=== PATIENT | female | born 1980 | race Caucasian/White ===

== ENCOUNTER → 2017-12-14 | Outpatient (CLI) | payer OTHER ==
[2017-12-14 13:35] LABS: ADD MAN DIFF? NO
[2017-12-14 13:40] LABS: BASO # 0.1 x10^3/uL (0.0-0.2); BASO % 1 % (0-3); EOS # 0.1 x10^3/uL (0.0-0.7); EOS % 2 % (0-3); HEMATOCRIT 38.9 % (36.0-47.0); HEMOGLOBIN 13.2 g/dL (12.0-15.5); LYMPH # 1.7 x10^3/uL (1.0-4.8); LYMPH % 36 % (24-48); MEAN CORPUSCULAR HEMOGLOBIN 32 pg (25-35); MEAN CORPUSCULAR HGB CONC 34 g/dL (31-37); MEAN CORPUSCULAR VOLUME 93 fL (79-100); MONO # 0.4 x10^3/uL (0.0-1.1); MONO % 9 % (0-9); NEUT # 2.6 x10^3uL (1.8-7.7); NEUT % 53 % (31-73); PLATELET COUNT 202 x10^3/uL (140-400); RED BLOOD COUNT 4.16 x10^6/uL (3.50-5.40); WHITE BLOOD COUNT 4.9 x10^3/uL (4.0-11.0)
[2017-12-14 13:55] LABS: ALBUMIN 4.1 g/dL (3.4-5.0); ALBUMIN/GLOBULIN RATIO 1.5 (1.0-1.7); ALK PHOS 61 U/L (46-116); ALT (SGPT) 15 U/L (14-59); ANION GAP 8 (6-14); AST (SGOT) 12 U/L (15-37); BLOOD UREA NITROGEN 13 mg/dL (7-20); BUN/CREATININE RATIO 19 (6-20); CALCIUM 8.7 mg/dL (8.5-10.1); CARBON DIOXIDE 25 mmol/L (21-32); CHLORIDE 104 mmol/L (98-107); CREATININE 0.7 mg/dL (0.6-1.0); GFR 93.2; GLUCOSE 91 mg/dL (70-99); POTASSIUM 4.2 mmol/L (3.5-5.1); SODIUM 137 mmol/L (136-145); TOTAL BILIRUBIN 0.6 mg/dL (0.2-1.0); TOTAL PROTEIN 6.9 g/dL (6.4-8.2)
== END | disposition home or self-care (01) ==
LOC: SURGPAT 13:00
DX: Z01.818 Encounter for other preprocedural examination (principal)
CPT/HCPCS: 36415; 80053; 85025

== ENCOUNTER 2017-12-20 07:18 | Observation (INO) | payer OTHER ==
[~2017-12-20 07:18] MED LIST: HYDROmorphone 2 MG/ML VIAL IV; LIDOCAINE 1% PF 2 ML VIAL. ID; MORPHINE SULFATE 2 MG/ML DISP.SYRIN. IV; ONDANSETRON PF 4 MG/2 ML VIAL. IV; ceFAZolin 2GM PREMIX 2 GM/50 ML BAG IV; fentaNYL PF VIAL 100 MCG/2 ML VIAL IV
[2017-12-20] MEDS ORDERED: METHYLENE BLUE 1% 10 ML VIAL. ×2 (07:22)
[2017-12-20] MEDS ORDERED: ESTROGENS, CONJ VAGINAL CREAM 30GM TUBE. ×2 (07:22)
[2017-12-20 07:44] LABS: NEG OBC UR NEG; POS OBC UR POS; U PREG PATIENT NEGATIVE (NEG)
[2017-12-20] MEDS: IV RINGERS,LACTATED 1000ML 1,000 ML IV ×6 (07:53→11:44)
[2017-12-20] MEDS ORDERED: SEVOFLURANE 61 TO 120 MINUTES. IH ×2 (08:03)
[2017-12-20] MEDS ORDERED: NEOSTIGMINE METHYLSULFATE 5 MG/5 ML SYRINGE. ×2 (08:04)
[2017-12-20] MEDS ORDERED: fentaNYL PF VIAL 100 MCG/2 ML VIAL ×4 (08:04→09:49)
[2017-12-20] MEDS ORDERED: GLYCOPYRROLATE 1 MG/5 ML VIAL. ×2 (08:04)
[2017-12-20] MEDS ORDERED: MIDAZOLAM HCL/PF 2 MG/2 ML VIAL. ×2 (08:04)
[2017-12-20] MEDS ORDERED: PROPOFOL 20 ML IV ×2 (08:04)
[2017-12-20] MEDS ORDERED: ROCURONIUM 50 MG/5 ML VIAL. ×4 (08:04→09:23)
[2017-12-20] MEDS ORDERED: LIDOCAINE 2% PF Vial for OR 5 ML VIAL. ×2 (08:05)
[2017-12-20] MEDS ORDERED: ONDANSETRON PF 4 MG/2 ML VIAL. ×2 (08:05)
[2017-12-20] MEDS ORDERED: DEXAMETHASONE SOD PHOS 20 MG/5 ML VIAL. ×2 (08:05)
[2017-12-20] MEDS: SCOPOLAMINE 1.5MG PATCH. TD ×2 (08:06)
[2017-12-20] MEDS ORDERED: KETOROLAC 30 MG/ML INJ FOR OR. INJ ×2 (08:34)
[2017-12-20] MEDS: BUPIVACAINE-EPI 0.25%-1:200000 50 ML VIAL. ×2 (08:56)
[2017-12-20] MEDS ORDERED: PHENYLEPHRINE in 0.9% NACL PF 1 MG/10 ML SYRINGE. IV (08:59)
[2017-12-20] MEDS ORDERED: diphenhydrAMINE HCL 25 MG CAPSULE PO ×2 (10:15)
[2017-12-20] MEDS ORDERED: CALCIUM CARBONATE 500 MG TAB.CHEW PO ×2 (10:15)
[2017-12-20] MEDS ORDERED: diphenhydrAMINE 50 MG/ML VIAL IV ×2 (10:15)
[2017-12-20] MEDS ORDERED: ONDANSETRON PF 4 MG/2 ML VIAL. IV ×2 (10:15)
[2017-12-20] MEDS ORDERED: ZOLPIDEM 5 MG TABLET. PO ×2 (10:15)
[2017-12-20] MEDS ORDERED: MAGNESIUM HYDROXIDE 2,400 MG/30 ML ORAL.SUSP. PO ×2 (10:15)
[2017-12-20] MEDS ORDERED: NALOXONE 0.4 MG/ML VIAL. IV ×2 (10:15)
[2017-12-20] MEDS ORDERED: MORPHINE SULFATE 2 MG/ML DISP.SYRIN. IV ×2 (10:15)
[2017-12-20] MEDS ORDERED: 0.9 % SODIUM CHLORIDE 10 ML DISP.SYRIN. IV ×2 (10:15)
[2017-12-20] MEDS ORDERED: MAG HYDROX/ALUMINUM HYD/SIMETH 30 ML ORAL.SUSP PO ×2 (10:15)
[2017-12-20] MEDS: PROCHLORPERAZINE 10 MG/2 ML VIAL. IV ×2 (10:48)
[2017-12-20] MEDS: fentaNYL PF VIAL 100 MCG/2 ML VIAL IV ×4 (10:49→11:31)
[2017-12-20] MEDS: KETOROLAC 30 MG/ML INJ. IV ×4 (14:45→21:45)
[2017-12-20] MEDS: oxyCODONE/APAP 5/325 1 TAB TABLET PO ×2 (15:10)
[2017-12-20] MEDS: HYDROcodone/APAP 5/325MG 1 TAB TABLET PO ×2 (19:53)
[2017-12-21] MEDS: oxyCODONE/APAP 5/325 1 TAB TABLET PO ×8 (01:28→13:35)
[2017-12-21 06:14] LABS: HEMATOCRIT 32.1 % (36.0-47.0)
[2017-12-21 06:28] LABS: ANION GAP 9 (6-14); BLOOD UREA NITROGEN 13 mg/dL (7-20); CALCIUM 8.9 mg/dL (8.5-10.1); CARBON DIOXIDE 25 mmol/L (21-32); CHLORIDE 106 mmol/L (98-107); CREATININE 0.8 mg/dL (0.6-1.0); GFR 79.9; GLUCOSE 93 mg/dL (70-99); POTASSIUM 4.4 mmol/L (3.5-5.1); SODIUM 140 mmol/L (136-145)
[2017-12-21] MEDS: SIMETHICONE 80 MG TAB.CHEW PO ×2 (09:40)
[2017-12-21] MEDS: LACTULOSE 20 GM/30 ML SOLUTION. PO ×2 (09:40)
== END 2017-12-21 15:05 | disposition home or self-care (01) ==
LOC: SURG 07:18 → 3 NORTH 10:45
DX: N83.8 Other noninflammatory disorders of ovary, fallopian tube and broad ligament (principal); N72 Inflammatory disease of cervix uteri; N85.2 Hypertrophy of uterus
CPT/HCPCS: 36415; 80048; 81025; 85014; 86850; 86900; 86901; 88307; 96374; 96376; C1769; G0378; G0379; J0690; J0780; J1100; J1885; J2250; J2370; J2405; J2704; J2710; J3010; J3490; J7030; J7120; Q9968